=== PATIENT | female | born 1950 | race Caucasian/White ===

== ENCOUNTER 2018-06-14 05:18 | Inpatient (IN) | payer MEDICARE, BC ==
[2018-06-09 15:51] LABS: BASOPHILS % (AUTO) 0.7 % (0-1); EOSINOPHILS # (AUTO) 0.2 X10'3 (0-0.9); EOSINOPHILS % (AUTO) 3.6 % (0-6); LYMPHOCYTES # (AUTO) 1.6 X10'3 (1.1-4.8); LYMPHOCYTES % (AUTO) 23.2 % (21-51); MEAN CORPUSCULAR VOLUME 87.9 FL (78-98); MEAN PLATELET VOLUME 7.8 FL (7.4-10.4); MONOCYTES # (AUTO) 0.6 X10'3 (0-0.9); MONOCYTES % (AUTO) 8.2 % (2-12); NEUTROPHILS # (AUTO) 4.4 X10'3 (1.8-7.7); NEUTROPHILS % (AUTO) 64.3 % (42-75); PRE OP HEMATOCRIT 39.5 % (35.0-45.0); PRE OP PLATELET COUNT 246 X10'3 (140-440); RED BLOOD COUNT 4.49 X10'6 (4.20-5.60); RED CELL DISTRIBUTION WIDTH 19.4 % (11.5-14.5)
[2018-06-09 15:55] LABS: CLARITY,URINE Clear (Clear); COLOR,URINE Yellow (Yellow); GLUCOSE, URINE Negative (Neg); KETONES,URINE Negative (Neg); LEUKOCYTE ESTERASE ,URINE Trace (Neg); NITRITES, URINE Negative (Neg); OCCULT BLOOD,URINE Negative (Neg); PROTEIN,URINE Negative (Neg); UROBILINOGEN,URINE 0.2 E.U/dL (0.2-1.0)
[2018-06-09 16:00] LABS: PARTIAL THROMBOPLASTIN TIME 24 SECONDS (22-32)
[2018-06-09 16:01] LABS: HEMOGLOBIN A1C 7.2 % (4.5-6.2)
[2018-06-09 16:04] LABS: UA COLLECTION TYPE NON-SPECIFIED
[2018-06-09 16:05] LABS: ALBUMIN 3.7 G/DL (3.4-5.0); ALBUMIN/GLOBULIN RATIO 0.9 (1.1-1.5); ALKALINE PHOSPHATASE 105 IU/L (46-116); BLOOD UREA NITROGEN 14 MG/DL (7-18); BUN/CREATININE RATIO 15.7 (6.6-38.0); CALCIUM 9.7 MG/DL (8.5-10.1); CHLORIDE 103 MMOL/L (99-107); CREATININE 0.89 MG/DL (0.40-0.90); PRE OP ALT 30 U/L (30-65); PRE OP ANION GAP 10 (8-16); PRE OP AST 36 U/L (10-37); PRE OP BILIRUB, TOTAL 0.8 MG/DL (0.0-1.0); PRE OP GLUCOSE 167 MG/DL (70-104); PRE OP POTASSIUM 3.8 MMOL/L (3.4-5.1); PRE OP SODIUM 140 MMOL/L (135-145); TOTAL CARBON DIOXIDE 27.5 MMOL/L (24-32); TOTAL PROTEIN 7.8 G/DL (6.4-8.2); eGFR 63 ML/MIN
[2018-06-09 16:20] LABS: SQUAMOUS EPITHELIAL CELL,UR FEW /LPF (FEW)
[2018-06-09 16:21] LABS: BACTERIA,URINE NONE SEEN /HPF (Neg); MUCUS STRANDS FEW /LPF (Neg); WBC,URINE 0-4 /HPF (0-4)
[2018-06-09 16:22] LABS: RBC,URINE 0 /HPF (0-2)
[2018-06-09 17:02] LABS: PLATELET ESTIMATE NORMAL; POLYCHROMASIA 1+
[2018-06-09 17:03] LABS: ANISOCYTOSIS 2+
[2018-06-14] VITALS (36 sets, daily range): BP systolic 105–158; BP diastolic 48–91
[~2018-06-14] VITALS: Ht 165.1 cm; Wt 112.3 kg
[~2018-06-14 05:18] MED LIST: AMLO2.5T2 PO; ATOR40TA PO; GLIP10TA11 PO; KRIL1CAP PO; LACT1CAP65 PO; LISI-600 PO; METF-950 PO; METO-384 PO
[2018-06-14] MEDS ORDERED: famotidine 20mg tablet PO ONE (05:30)
[2018-06-14] MEDS ORDERED: DOCUMENT DATE & TIME OF BETA-BLOCKER PO ONE (05:30)
[2018-06-14] MEDS ORDERED: Cefazolin 2GM/50ML dext iso,osmotic IVPB IV ONE (05:30)
[2018-06-14] MEDS ORDERED: LIDOcaine 1% (10mg/ml) 2ml vial ONE (05:41)
[2018-06-14] MEDS: ringers solution, lacted 1,000 ML IV SCH ×4 (05:58→16:19)
[2018-06-14] MEDS ORDERED: ceFAZolin 1000mg inj ONE (06:49)
[2018-06-14] MEDS ORDERED: cloNIDine hcl/PF 100mcg/ml inj ONE (07:24)
[2018-06-14] MEDS ORDERED: LIDOcaine 2% (20mg/ml) 5ml vial ONE (07:26)
[2018-06-14] MEDS ORDERED: propofol inj 20 ML IV ONE (07:26)
[2018-06-14] MEDS ORDERED: fentaNYL /PF 50mcg/ml 5ml ampule ONE (07:26)
[2018-06-14] MEDS ORDERED: midazolam 2 mg/2 ml injection ONE (07:26)
[2018-06-14] MEDS ORDERED: rocuronium 10mg/ml inj IV ONE ×2 (07:26→09:37)
[2018-06-14] MEDS ORDERED: sevoflurane 250ml liquid IH ONE (07:31)
[2018-06-14] MEDS ORDERED: insulin regular, human vial - multi-dose ONE (08:13)
[2018-06-14] MEDS ORDERED: meperidine/PF 25mg/ml syringe IV PRN ×2 (09:10)
[2018-06-14] MEDS ORDERED: ondansetron/PF 4mg/2ml inj IV PRN (09:10)
[2018-06-14] MEDS ORDERED: proCHLORperazine 10 MG/2 ml inj IV PRN (09:10)
[2018-06-14] MEDS ORDERED: morphine 4 MG/ML inj SYRINge IV PRN ×2 (09:10)
[2018-06-14] MEDS ORDERED: ringers solution, lacted 1,000 ML IV SCH (09:10)
[2018-06-14] MEDS ORDERED: glycopyrrolate 0.2mg/ml inj ONE (09:37)
[2018-06-14] MEDS ORDERED: neostigmine methylsulfate 1 MG/ML 10ml vial ONE (09:37)
[2018-06-14] MEDS ORDERED: ipratropium/albuterol 3ml nebule IH ONE (10:25)
[2018-06-14] MEDS ORDERED: insulin regular, human 10 units/0.1 ml syringe IV ONE (11:00)
[2018-06-14] MEDS: meperidine/PF 25mg/ml syringe IV PRN ×5 (11:38→16:18)
[2018-06-14] MEDS ORDERED: acetaminophen 1,000mg/100ml IV 100 ML IV ONE (11:40)
[2018-06-14] MEDS ORDERED: ketorolac trometh. 30mg/ml inj. IV ONE (11:40)
[2018-06-14 12:10] LABS: ABG HCO3 17.2 mmol/L (22.0-26.0); ABG OXYGEN SATURATION 89.8 % (95-98); ABG PCO2 (T) 34.6 mmHg (32.0-45.0); ABG PH (T) 7.315 (7.350-7.450); ABG PO2 (T) 64.5 mmHg (83-108); FCOHb 0.4 % (0.5-1.5); FLOW 8 L/min; FMetHb 0.2 % (0.3-1.12); FO2Hb 89.3 % (94-100)
[2018-06-14] MEDS: metFORMIN 500mg tablet PO SCH ×2 (13:00→20:10)
[2018-06-14 14:30] LABS: ABG BASE EXCESS -4.9 mmol/L (-2.0-3.0); ABG OXYGEN SATURATION 92.8 % (95-98); ABG PCO2 (T) 36.4 mmHg (32.0-45.0); ABG PH (T) 7.357 (7.350-7.450); ABG PO2 (T) 69.7 mmHg (83-108); FCOHb 0.3 % (0.5-1.5); FLOW 6 L/min; FMetHb 0.1 % (0.3-1.12); FO2Hb 92.4 % (94-100); TOTAL HEMOGLOBIN 12.6 G/dl (12.0-16.0)
[2018-06-14] MEDS ORDERED: HYDROmorphone/NS 1 mg/ml CADD 50 ML IV SCH (14:40)
[2018-06-14] MEDS ORDERED: CADD PCA waste documentation MC SCH (14:45)
[2018-06-14] MEDS ORDERED: naloxone 0.4 mg/ml inj IV PRN (14:45)
[2018-06-14] MEDS: HYDROmorphone/NS 1 mg/ml CADD 50 ML IV SCH ×5 (14:45→23:08)
[2018-06-14] MEDS: lactobacillus rhamnosus 10,000 MMU CELLS/CAPSULE PO SCH (20:10)
[2018-06-14] MEDS ORDERED: Melatonin 3mg tablet PO PRN (21:20)
[2018-06-14] MEDS: Melatonin 3mg tablet PO PRN (21:35)
[2018-06-15] MEDS: HYDROmorphone/NS 1 mg/ml CADD 50 ML IV SCH ×7 (00:56→13:00)
[2018-06-15 02:55] VITALS: BP 135/60
[2018-06-15 06:00] VITALS: BP 133/57
[2018-06-15] MEDS: atorvastatin 20mg tablet PO SCH (07:51)
[2018-06-15] MEDS: metFORMIN 500mg tablet PO SCH ×3 (07:51→20:37)
[2018-06-15] MEDS: metoprolol succinate 25mg (24-HOUR) SR. Tablet PO SCH (07:51)
[2018-06-15] MEDS: lactobacillus rhamnosus 10,000 MMU CELLS/CAPSULE PO SCH ×2 (07:51→20:36)
[2018-06-15] MEDS: lisinopril 20mg tablet PO SCH (07:51)
[2018-06-15] MEDS: amLODIPine 5mg tablet PO SCH (07:51)
[2018-06-15] MEDS: OMEGA-3/DHA/EPA/FISH OIL 1 EACH CAPSULE.DR PO SCH (07:55)
[2018-06-15 11:00] VITALS: BP 150/69
[2018-06-15] MEDS: HYDROcodone/acetaminophen 10/325mg tab PO PRN (14:40)
[2018-06-15 15:00] VITALS: BP 143/66
[2018-06-15 19:00] VITALS: BP 151/63
[2018-06-15 23:00] VITALS: BP 145/81
[2018-06-16 03:00] VITALS: BP 147/71
[2018-06-16 06:00] VITALS: BP 147/68
[2018-06-16] MEDS: OMEGA-3/DHA/EPA/FISH OIL 1 EACH CAPSULE.DR PO SCH (08:00)
[2018-06-16] MEDS: metFORMIN 500mg tablet PO SCH ×3 (09:23→20:37)
[2018-06-16] MEDS: lisinopril 20mg tablet PO SCH (09:23)
[2018-06-16] MEDS: metoprolol succinate 25mg (24-HOUR) SR. Tablet PO SCH (09:23)
[2018-06-16] MEDS: amLODIPine 5mg tablet PO SCH (09:23)
[2018-06-16] MEDS: atorvastatin 20mg tablet PO SCH (09:23)
[2018-06-16] MEDS: lactobacillus rhamnosus 10,000 MMU CELLS/CAPSULE PO SCH ×2 (09:23→20:37)
[2018-06-16 11:00] VITALS: BP 151/92
[2018-06-16] MEDS: HYDROcodone/acetaminophen 10/325mg tab PO PRN ×2 (11:14→22:32)
[2018-06-16 17:21] VITALS: BP 118/75
[2018-06-16 18:00] VITALS: BP 136/64
[2018-06-16 22:00] VITALS: BP 138/66
[2018-06-17] VITALS (21 sets, daily range): BP systolic 102–181; BP diastolic 60–96
[2018-06-17] MEDS: atorvastatin 20mg tablet PO SCH (08:00)
[2018-06-17] MEDS: lactobacillus rhamnosus 10,000 MMU CELLS/CAPSULE PO SCH ×2 (08:00→22:52)
[2018-06-17] MEDS: OMEGA-3/DHA/EPA/FISH OIL 1 EACH CAPSULE.DR PO SCH (08:00)
[2018-06-17] MEDS: metFORMIN 500mg tablet PO SCH ×3 (08:00→22:52)
[2018-06-17] MEDS: lisinopril 20mg tablet PO SCH (09:14)
[2018-06-17] MEDS: amLODIPine 5mg tablet PO SCH (09:15)
[2018-06-17] MEDS: metoprolol succinate 25mg (24-HOUR) SR. Tablet PO SCH (09:15)
[2018-06-17] MEDS ORDERED: diltiazem-NS 100mg/100ml 100 ML IV SCH (09:30)
[2018-06-17] MEDS ORDERED: diltiazem 5mg/ml 5ml inj. IV ONE (09:30)
[2018-06-17] MEDS: apixaban 5mg tablet PO SCH ×2 (10:31→22:52)
[2018-06-17 11:21] LABS: ALANINE AMINOTRANSFERASE 28 U/L (12-78); ALBUMIN 2.7 G/DL (3.4-5.0); ALBUMIN/GLOBULIN RATIO 0.6 (1.1-1.5); ALKALINE PHOSPHATASE 109 IU/L (46-116); ANION GAP 12 (8-16); ASPARTATE AMINO TRANSFERASE 23 U/L (10-37); BILIRUBIN,TOTAL 1.3 MG/DL (0.1-1.0); BLOOD UREA NITROGEN 22 MG/DL (7-18); BUN/CREATININE RATIO 23.4 (6.6-38.0); CALCIUM 9.1 MG/DL (8.5-10.1); CHLORIDE 102 MMOL/L (99-107); CREATININE 0.94 MG/DL (0.40-0.90); GLUCOSE 219 MG/DL (70-104); SODIUM 138 MMOL/L (135-145); TOTAL CARBON DIOXIDE 24.5 MMOL/L (24-32); TOTAL PROTEIN 7.5 G/DL (6.4-8.2); eGFR 59 ML/MIN
[2018-06-17] MEDS ORDERED: ondansetron 4mg rapidly disintigrating tab PO PRN (19:55)
[2018-06-17] MEDS: Melatonin 3mg tablet PO PRN (22:52)
[2018-06-18] VITALS (11 sets, daily range): BP systolic 99–149; BP diastolic 58–81
[2018-06-18] MEDS: diltiazem-D5W 125mg/125ml 125 ML IV SCH ×3 (02:05→15:27)
[2018-06-18 05:09] LABS: BASOPHILS % (AUTO) 0.2 % (0-1); EOSINOPHILS # (AUTO) 0.2 X10'3 (0-0.9); EOSINOPHILS % (AUTO) 1.9 % (0-6); HEMATOCRIT 36.7 % (35.0-45.0); HEMOGLOBIN 12.2 g/dl (12.0-16.0); LYMPHOCYTES # (AUTO) 1.1 X10'3 (1.1-4.8); LYMPHOCYTES % (AUTO) 10.4 % (21-51); MEAN CORPUSCULAR HEMOGLOBIN 29.5 PG (27.0-31.0); MEAN CORPUSCULAR HGB CONC 33.4 % (33.0-36.5); MEAN CORPUSCULAR VOLUME 88.5 FL (78-98); MEAN PLATELET VOLUME 8.1 FL (7.4-10.4); MONOCYTES # (AUTO) 1.1 X10'3 (0-0.9); MONOCYTES % (AUTO) 10.1 % (2-12); NEUTROPHILS # (AUTO) 8.1 X10'3 (1.8-7.7); NEUTROPHILS % (AUTO) 77.4 % (42-75); PLATELET COUNT 273 X10'3 (140-440); RED BLOOD COUNT 4.14 X10'6 (4.20-5.60); RED CELL DISTRIBUTION WIDTH 18.8 % (11.5-14.5); WHITE BLOOD COUNT 10.5 X10'3 (4.5-11.0)
[2018-06-18 05:44] LABS: ALANINE AMINOTRANSFERASE 33 U/L (12-78); ALBUMIN 2.4 G/DL (3.4-5.0); ALBUMIN/GLOBULIN RATIO 0.5 (1.1-1.5); ALKALINE PHOSPHATASE 122 IU/L (46-116); ANION GAP 8 (8-16); ASPARTATE AMINO TRANSFERASE 41 U/L (10-37); BILIRUBIN,TOTAL 1.1 MG/DL (0.1-1.0); BLOOD UREA NITROGEN 21 MG/DL (7-18); BUN/CREATININE RATIO 30.4 (6.6-38.0); CALCIUM 8.7 MG/DL (8.5-10.1); CHLORIDE 104 MMOL/L (99-107); CREATININE 0.69 MG/DL (0.40-0.90); GLUCOSE 167 MG/DL (70-104); MAGNESIUM 2.2 MG/DL (1.5-2.4); SODIUM 140 MMOL/L (135-145); TOTAL CARBON DIOXIDE 27.8 MMOL/L (24-32); TOTAL PROTEIN 6.9 G/DL (6.4-8.2); eGFR 85 ML/MIN
[2018-06-18] MEDS ORDERED: diltiazem 5mg/ml 5ml inj. IV ONE (07:45)
[2018-06-18] MEDS: lactobacillus rhamnosus 10,000 MMU CELLS/CAPSULE PO SCH ×2 (08:00→20:35)
[2018-06-18] MEDS: metFORMIN 500mg tablet PO SCH ×3 (08:00→21:00)
[2018-06-18] MEDS: atorvastatin 20mg tablet PO SCH (08:00)
[2018-06-18] MEDS: OMEGA-3/DHA/EPA/FISH OIL 1 EACH CAPSULE.DR PO SCH (08:00)
[2018-06-18] MEDS ORDERED: mag hydrox/Alum hydrox/simeth 30ml oral suspension PO PRN (08:20)
[2018-06-18] MEDS: apixaban 5mg tablet PO SCH ×2 (08:34→20:35)
[2018-06-18] MEDS: metoprolol succinate 25mg (24-HOUR) SR. Tablet PO SCH (08:35)
[2018-06-18] MEDS ORDERED: famotidine 20mg tablet PO ONE (09:35)
[2018-06-18] MEDS: diltiazem 30mg tablet PO SCH ×2 (13:54→20:35)
[2018-06-18] MEDS: HYDROcodone/acetaminophen 10/325mg tab PO PRN (20:45)
[2018-06-18] MEDS: Melatonin 3mg tablet PO PRN (20:45)
[2018-06-19 03:00] VITALS: BP 101/47
[2018-06-19 06:00] VITALS: BP 127/99
[2018-06-19] MEDS: OMEGA-3/DHA/EPA/FISH OIL 1 EACH CAPSULE.DR PO SCH (08:00)
[2018-06-19] MEDS: pantoprazole 40mg Tablet.DR PO SCH (08:06)
[2018-06-19] MEDS: famotidine 20mg tablet PO SCH (08:06)
[2018-06-19] MEDS: diltiazem 30mg tablet PO SCH ×3 (08:09→20:42)
[2018-06-19] MEDS: lactobacillus rhamnosus 10,000 MMU CELLS/CAPSULE PO SCH ×2 (08:11→20:40)
[2018-06-19] MEDS: metFORMIN 500mg tablet PO SCH ×2 (08:12→13:00)
[2018-06-19] MEDS: apixaban 5mg tablet PO SCH ×2 (08:12→20:42)
[2018-06-19] MEDS: atorvastatin 20mg tablet PO SCH (08:13)
[2018-06-19] MEDS: metoprolol succinate 25mg (24-HOUR) SR. Tablet PO SCH (08:14)
[2018-06-19 11:00] VITALS: BP 145/72
[2018-06-19] MEDS ORDERED: iohexol 350MG/ML 100ml bottle IV ONE ×2 (11:26→17:15)
[2018-06-19 15:00] VITALS: BP 163/69
[2018-06-19] MEDS: HYDROcodone/acetaminophen 10/325mg tab PO PRN (20:41)
[2018-06-19] MEDS: Melatonin 3mg tablet PO PRN (20:42)
[2018-06-20 06:00] VITALS: BP 155/93
[2018-06-20] MEDS: famotidine 20mg tablet PO SCH (06:41)
[2018-06-20] MEDS: pantoprazole 40mg Tablet.DR PO SCH (06:41)
[2018-06-20] MEDS: diltiazem 30mg tablet PO SCH ×3 (06:41→13:33)
[2018-06-20] MEDS: OMEGA-3/DHA/EPA/FISH OIL 1 EACH CAPSULE.DR PO SCH (08:00)
[2018-06-20] MEDS: lactobacillus rhamnosus 10,000 MMU CELLS/CAPSULE PO SCH (08:22)
[2018-06-20] MEDS: atorvastatin 20mg tablet PO SCH (08:23)
[2018-06-20] MEDS: metoprolol succinate 25mg (24-HOUR) SR. Tablet PO SCH (08:23)
[2018-06-20] MEDS: apixaban 5mg tablet PO SCH (08:23)
[2018-06-20 11:00] VITALS: BP 132/61
[2018-06-20] MEDS ORDERED: DILT30TA5 PO (13:03)
[2018-06-20] MEDS ORDERED: APIX5TAB3 PO (13:03)
[2018-06-20 15:00] VITALS: BP 123/67
[2018-06-20] MEDS ORDERED: ipratropium/albuterol 3ml nebule NEB PRN (18:05)
[2018-06-21] MEDS ORDERED: metFORMIN 500mg tablet PO SCH (21:00)
== END 2018-06-20 18:00 | disposition home or self-care (01) | DRG 335 ==
LOC: PAS 05:18 → PCU 3S 05:19 → PAS 16:04
PROVIDERS: ADMIT Surgery; ATTEND Surgery
PROC: 0DN84ZZ Release Small Intestine, Percutaneous Endoscopic Approach (ICD-10-PCS; 2018-06-14)
PROC: 3E0M45Z Introduction of Adhesion Barrier into Peritoneal Cavity, Percutaneous Endoscopic Approach (ICD-10-PCS; 2018-06-14)
PROC: 0DNU4ZZ Release Omentum, Percutaneous Endoscopic Approach (ICD-10-PCS; 2018-06-14)
PROC: 0WUF4JZ Supplement Abdominal Wall with Synthetic Substitute, Percutaneous Endoscopic Approach (ICD-10-PCS; principal; 2018-06-14 07:31)
PROC: B32T1ZZ Computerized Tomography (CT Scan) of Left Pulmonary Artery using Low Osmolar Contrast (ICD-10-PCS; 2018-06-19)
PROC: B3201ZZ Computerized Tomography (CT Scan) of Thoracic Aorta using Low Osmolar Contrast (ICD-10-PCS; 2018-06-19)
PROC: B32S1ZZ Computerized Tomography (CT Scan) of Right Pulmonary Artery using Low Osmolar Contrast (ICD-10-PCS; 2018-06-19)
DX: K56.50 Intestinal adhesions [bands], unspecified as to partial versus complete obstruction (principal); J96.00 Acute respiratory failure, unspecified whether with hypoxia or hypercapnia; Z68.41 Body mass index [BMI] 40.0-44.9, adult; E46 Unspecified protein-calorie malnutrition; I47.1 Supraventricular tachycardia; K43.2 Incisional hernia without obstruction or gangrene; K43.9 Ventral hernia without obstruction or gangrene; E66.01 Morbid (severe) obesity due to excess calories; I48.91 Unspecified atrial fibrillation; E03.9 Hypothyroidism, unspecified; E78.5 Hyperlipidemia, unspecified; G47.30 Sleep apnea, unspecified; I10 Essential (primary) hypertension; I25.10 Atherosclerotic heart disease of native coronary artery without angina pectoris; K21.9 Gastro-esophageal reflux disease without esophagitis; Z96.642 Presence of left artificial hip joint; E05.90 Thyrotoxicosis, unspecified without thyrotoxic crisis or storm; E11.65 Type 2 diabetes mellitus with hyperglycemia; Z90.710 Acquired absence of both cervix and uterus; Z90.49 Acquired absence of other specified parts of digestive tract; Z95.5 Presence of coronary angioplasty implant and graft; Z88.0 Allergy status to penicillin; Z79.84 Long term (current) use of oral hypoglycemic drugs; Z79.899 Other long term (current) drug therapy; Z85.038 Personal history of other malignant neoplasm of large intestine; Z87.891 Personal history of nicotine dependence; Z92.21 Personal history of antineoplastic chemotherapy; Z82.49 Family history of ischemic heart disease and other diseases of the circulatory system
CPT/HCPCS: 36415; 36600; 71275; 76536; 80053; 81001; 82803; 82948; 83036; 83735; 84439; 84443; 85018; 85025; 85610; 85730; 87070; 87088; 93005; 93306; 94640; 94660; 97116; 97161; 97530; A6213; A7000; C1713; C1758; C1781; J0131; J0690; J0735; J1170; J1815; J1885; J2001; J2175; J2250; J2405; J2704; J2710; J3010; J3490; J7030; J7120; Q9967

== ENCOUNTER 2018-07-16 04:02 | Inpatient (IN) | payer MEDICARE, BC ==
[~2018-07-16] VITALS: Ht 165.1 cm; Wt 109.0 kg
[~2018-07-16 04:02] MED LIST changes: +APIX5TAB3 PO; +DILT30TA5 PO
[2018-07-16] MEDS ORDERED: ondansetron/PF 4mg/2ml inj IV ONE (04:30)
[2018-07-16] MEDS ORDERED: PROBIOTIC 10 PO (04:53)
[2018-07-16] MEDS ORDERED: ASPI-803 PO (04:53)
[2018-07-16] MEDS ORDERED: DILT30TA5 PO (04:53)
[2018-07-16] MEDS ORDERED: [UNRECOGNIZED DRUG - CODE] PO (04:53)
[2018-07-16] MEDS ORDERED: mag hydrox/Alum hydrox/simeth 30ml oral suspension PO PRN (05:45)
[2018-07-16] MEDS ORDERED: dextrose 50%-water 50ml dispensing syringe IV PRN ×2 (05:45)
[2018-07-16] MEDS ORDERED: dextrose ORAL solution 15 GM/59 ML bottle PO PRN ×2 (05:45)
[2018-07-16] MEDS ORDERED: MESSAGE TO PHARMACY PO ONE (05:45)
[2018-07-16] MEDS ORDERED: normal saline 1000ml 1,000 ML IV ONE (05:45)
[2018-07-16] MEDS ORDERED: magnesium hydroxide 30ml (MOM) UD suspension PO PRN (05:45)
[2018-07-16] MEDS ORDERED: glucagon, human recombinant 1mg kit SUBCUT PRN (05:45)
[2018-07-16] MEDS ORDERED: acetaminophen 325mg tablet PO PRN ×2 (05:45)
[2018-07-16] MEDS ORDERED: APIX5TAB3 PO (06:57)
[2018-07-16 07:55] VITALS: BP 189/95
[2018-07-16] MEDS ORDERED: DHA PO SCH (08:00)
[2018-07-16] MEDS ORDERED: EPA PO SCH (08:00)
[2018-07-16] MEDS ORDERED: LIP PO SCH (08:00)
[2018-07-16] MEDS ORDERED: KRILL PO SCH (08:00)
[2018-07-16] MEDS ORDERED: CefTRIAXone 2gm/D5W 50ml 50 ML IV SCH (08:00)
[2018-07-16] MEDS ORDERED: ASTX PO SCH (08:00)
[2018-07-16] MEDS ORDERED: [UNRECOGNIZED DRUG - OTHER] PO SCH (08:00)
[2018-07-16] MEDS: lactobacillus rhamnosus 10,000 MMU CELLS/CAPSULE PO SCH (08:45)
[2018-07-16] MEDS: atorvastatin 20mg tablet PO SCH (08:45)
[2018-07-16] MEDS: lisinopril 20mg tablet PO SCH (08:45)
[2018-07-16] MEDS: metroNIDAZOLE-Flagyl 500mg/NS 100 ML IV SCH ×2 (08:45→20:15)
[2018-07-16] MEDS: metoprolol succinate 25mg (24-HOUR) SR. Tablet PO SCH (08:45)
[2018-07-16] MEDS: amLODIPine 5mg tablet PO SCH (08:45)
[2018-07-16] MEDS: diltiazem 30mg tablet PO SCH ×3 (08:47→20:16)
[2018-07-16] MEDS ORDERED: magnesium Cl slow-release 64mg tablet PO PRN (09:45)
[2018-07-16] MEDS: normal saline 1000ml 1,000 ML IV SCH ×2 (09:45→19:45)
[2018-07-16] MEDS ORDERED: potassium Cl 20 mEq SR tablet PO PRN (09:45)
[2018-07-16] MEDS ORDERED: magnesium 4gm in 100ml NS 100 ML IV PRN (09:45)
[2018-07-16] MEDS ORDERED: magnesium 1gm/100ml D5W IVPB 100 ML IV PRN (09:45)
[2018-07-16] MEDS ORDERED: potassium Cl 40MEQ/NS 500ml 500 ML IV PRN ×2 (09:45)
[2018-07-16 10:39] LABS: BASOPHILS # (AUTO) 0.1 X10'3 (0-0.2); BASOPHILS % (AUTO) 1.2 % (0-1); EOSINOPHILS # (AUTO) 0.2 X10'3 (0-0.9); EOSINOPHILS % (AUTO) 2.8 % (0-6); HEMATOCRIT 31.8 % (35.0-45.0); HEMOGLOBIN 10.5 g/dl (12.0-16.0); LYMPHOCYTES % (AUTO) 15.5 % (21-51); MEAN CORPUSCULAR HEMOGLOBIN 28.3 PG (27.0-31.0); MEAN CORPUSCULAR HGB CONC 33.2 % (33.0-36.5); MEAN CORPUSCULAR VOLUME 85.2 FL (78-98); MEAN PLATELET VOLUME 7.5 FL (7.4-10.4); MONOCYTES # (AUTO) 0.5 X10'3 (0-0.9); MONOCYTES % (AUTO) 7.1 % (2-12); NEUTROPHILS # (AUTO) 4.5 X10'3 (1.8-7.7); NEUTROPHILS % (AUTO) 73.4 % (42-75); PLATELET COUNT 333 X10'3 (140-440); RED BLOOD COUNT 3.73 X10'6 (4.20-5.60); RED CELL DISTRIBUTION WIDTH 18.2 % (11.5-14.5); WHITE BLOOD COUNT 6.3 X10'3 (4.5-11.0)
[2018-07-16 10:46] LABS: ALANINE AMINOTRANSFERASE 27 U/L (12-78); ALBUMIN 2.8 G/DL (3.4-5.0); ALBUMIN/GLOBULIN RATIO 0.6 (1.1-1.5); ALKALINE PHOSPHATASE 197 IU/L (46-116); ANION GAP 7 (8-16); ASPARTATE AMINO TRANSFERASE 35 U/L (10-37); BILIRUBIN,TOTAL 0.5 MG/DL (0.1-1.0); BLOOD UREA NITROGEN 7 MG/DL (7-18); CALCIUM 8.5 MG/DL (8.5-10.1); CHLORIDE 105 MMOL/L (99-107); GLUCOSE 147 MG/DL (70-104); MAGNESIUM 1.5 MG/DL (1.5-2.4); POTASSIUM 3.6 MMOL/L (3.5-5.1); SODIUM 143 MMOL/L (135-145); TOTAL CARBON DIOXIDE 31.4 MMOL/L (24-32); TOTAL PROTEIN 7.3 G/DL (6.4-8.2)
[2018-07-16 10:51] LABS: BUN/CREATININE RATIO 11.1 (6.6-38.0); CREATININE 0.63 MG/DL (0.40-0.90); eGFR > 90 ML/MIN
[2018-07-16 10:57] LABS: HEMOGLOBIN A1C 7.2 % (4.5-6.2)
[2018-07-16] MEDS: levoFLOXACIN-Levaquin 750MG/D5 150 ML IV SCH (11:13)
[2018-07-16 12:00] VITALS: BP 133/57
[2018-07-16] MEDS: HYDROcodone/acetaminophen 5mg/325mg tablet PO PRN (15:00)
[2018-07-16 19:30] VITALS: BP 153/61
[2018-07-16] MEDS: insulin glargine (Lantus) pen - multi-dose SQ SCH (21:00)
[2018-07-16] MEDS: nystatin 15 GM powder TP SCH (21:45)
[2018-07-16] MEDS: diatr meglu/diatrizoate 30ml oral sol.-(3 dose) bottle PO SCH (21:45)
[2018-07-16] MEDS: ondansetron/PF 4mg/2ml inj IV PRN (22:02)
[2018-07-16] MEDS: morphine 2 MG/ML inj. syringe IV PRN (23:40)
[2018-07-17] VITALS: BP 131/58
[2018-07-17] MEDS: normal saline 1000ml 1,000 ML IV SCH ×2 (01:22→14:10)
[2018-07-17 02:15] VITALS: BP 141/69
[2018-07-17] MEDS: diltiazem 30mg tablet PO SCH ×2 (02:27→07:39)
[2018-07-17 05:52] LABS: BASOPHILS % (AUTO) 0.5 % (0-1); EOSINOPHILS # (AUTO) 0.3 X10'3 (0-0.9); EOSINOPHILS % (AUTO) 4.3 % (0-6); HEMATOCRIT 28.5 % (35.0-45.0); HEMOGLOBIN 9.8 g/dl (12.0-16.0); LYMPHOCYTES # (AUTO) 1.4 X10'3 (1.1-4.8); LYMPHOCYTES % (AUTO) 23.6 % (21-51); MEAN CORPUSCULAR HGB CONC 34.3 % (33.0-36.5); MEAN CORPUSCULAR VOLUME 84.8 FL (78-98); MEAN PLATELET VOLUME 7.3 FL (7.4-10.4); MONOCYTES # (AUTO) 0.6 X10'3 (0-0.9); MONOCYTES % (AUTO) 9.4 % (2-12); NEUTROPHILS # (AUTO) 3.6 X10'3 (1.8-7.7); NEUTROPHILS % (AUTO) 62.2 % (42-75); PLATELET COUNT 298 X10'3 (140-440); RED BLOOD COUNT 3.37 X10'6 (4.20-5.60); RED CELL DISTRIBUTION WIDTH 18.2 % (11.5-14.5); WHITE BLOOD COUNT 5.9 X10'3 (4.5-11.0)
[2018-07-17 06:06] LABS: ALBUMIN 2.4 G/DL (3.4-5.0); ANION GAP 8 (8-16); BLOOD UREA NITROGEN 6 MG/DL (7-18); BUN/CREATININE RATIO 9.7 (6.6-38.0); CALCIUM 8.2 MG/DL (8.5-10.1); CHLORIDE 107 MMOL/L (99-107); CREATININE 0.62 MG/DL (0.40-0.90); GLUCOSE 138 MG/DL (70-104); MAGNESIUM 1.5 MG/DL (1.5-2.4); POTASSIUM 3.3 MMOL/L (3.5-5.1); SODIUM 144 MMOL/L (135-145); TOTAL CARBON DIOXIDE 28.6 MMOL/L (24-32); eGFR > 90 ML/MIN
[2018-07-17 07:20] VITALS: BP 151/69
[2018-07-17] MEDS ORDERED: pneumococcal 23-VAL P-sac vacc 25 mcg/0.5ml vial IMVAC ONE (07:20)
[2018-07-17] MEDS: diatr meglu/diatrizoate 30ml oral sol.-(3 dose) bottle PO SCH ×2 (07:39→11:02)
[2018-07-17] MEDS: amLODIPine 5mg tablet PO SCH (07:39)
[2018-07-17] MEDS: lactobacillus rhamnosus 10,000 MMU CELLS/CAPSULE PO SCH (07:39)
[2018-07-17] MEDS: metroNIDAZOLE-Flagyl 500mg/NS 100 ML IV SCH ×2 (07:39→20:27)
[2018-07-17] MEDS: metoprolol succinate 25mg (24-HOUR) SR. Tablet PO SCH (07:39)
[2018-07-17] MEDS: atorvastatin 20mg tablet PO SCH (07:39)
[2018-07-17] MEDS: lisinopril 20mg tablet PO SCH (07:39)
[2018-07-17] MEDS: nystatin 15 GM powder TP SCH ×3 (07:39→22:58)
[2018-07-17] MEDS: ondansetron/PF 4mg/2ml inj IV PRN (07:46)
[2018-07-17] MEDS: morphine 2 MG/ML inj. syringe IV PRN ×3 (07:55→23:00)
[2018-07-17] MEDS: diltiazem CD 180mg cap (once-daily) PO SCH (08:00)
[2018-07-17] MEDS ORDERED: iohexol 300mg/ml 100ml inj. ONE (09:40)
[2018-07-17] MEDS: levoFLOXACIN-Levaquin 750MG/D5 150 ML IV SCH (09:57)
[2018-07-17] MEDS: potassium Cl 20 mEq SR tablet PO PRN ×2 (09:59→20:26)
[2018-07-17] MEDS: MESSAGE TO NURSING PO NR (11:53)
[2018-07-17 12:00] VITALS: BP 150/75
[2018-07-17] MEDS: insulin Lispro (HumaLOG) vial - multi-dose SQ SCH ×2 (13:56→20:25)
[2018-07-17 20:00] VITALS: BP 146/81
[2018-07-17] MEDS: heparin, porcine 5000 units/ml vial SQ SCH (20:27)
[2018-07-17] MEDS: insulin glargine (Lantus) pen - multi-dose SQ SCH (22:07)
[2018-07-18] VITALS (13 sets, daily range): BP systolic 105–163; BP diastolic 60–80
[2018-07-18] MEDS: potassium Cl 20 mEq SR tablet PO PRN (01:20)
[2018-07-18] MEDS: normal saline 1000ml 1,000 ML IV SCH ×2 (02:04→20:06)
[2018-07-18 05:46] LABS: BASOPHILS # (AUTO) 0.1 X10'3 (0-0.2); EOSINOPHILS # (AUTO) 0.3 X10'3 (0-0.9); EOSINOPHILS % (AUTO) 4.5 % (0-6); HEMATOCRIT 34.1 % (35.0-45.0); HEMOGLOBIN 11.4 g/dl (12.0-16.0); LYMPHOCYTES # (AUTO) 1.5 X10'3 (1.1-4.8); LYMPHOCYTES % (AUTO) 23.1 % (21-51); MEAN CORPUSCULAR HEMOGLOBIN 28.3 PG (27.0-31.0); MEAN CORPUSCULAR HGB CONC 33.3 % (33.0-36.5); MEAN CORPUSCULAR VOLUME 85.1 FL (78-98); MEAN PLATELET VOLUME 7.8 FL (7.4-10.4); MONOCYTES # (AUTO) 0.4 X10'3 (0-0.9); MONOCYTES % (AUTO) 5.8 % (2-12); NEUTROPHILS # (AUTO) 4.3 X10'3 (1.8-7.7); NEUTROPHILS % (AUTO) 65.6 % (42-75); PLATELET COUNT 381 X10'3 (140-440); RED BLOOD COUNT 4.01 X10'6 (4.20-5.60); WHITE BLOOD COUNT 6.6 X10'3 (4.5-11.0)
[2018-07-18 06:00] LABS: ANION GAP 10 (8-16); BLOOD UREA NITROGEN 5 MG/DL (7-18); CALCIUM 8.5 MG/DL (8.5-10.1); CHLORIDE 105 MMOL/L (99-107); CREATININE 0.71 MG/DL (0.40-0.90); GLUCOSE 145 MG/DL (70-104); MAGNESIUM 1.6 MG/DL (1.5-2.4); POTASSIUM 3.7 MMOL/L (3.5-5.1); SODIUM 143 MMOL/L (135-145); TOTAL CARBON DIOXIDE 27.8 MMOL/L (24-32); eGFR 82 ML/MIN
[2018-07-18] MEDS: lisinopril 20mg tablet PO SCH (07:21)
[2018-07-18] MEDS: levoFLOXACIN-Levaquin 750MG/D5 150 ML IV SCH (07:21)
[2018-07-18] MEDS: lactobacillus rhamnosus 10,000 MMU CELLS/CAPSULE PO SCH (07:22)
[2018-07-18] MEDS: diltiazem CD 180mg cap (once-daily) PO SCH (07:23)
[2018-07-18] MEDS: atorvastatin 20mg tablet PO SCH (07:24)
[2018-07-18] MEDS: metoprolol succinate 25mg (24-HOUR) SR. Tablet PO SCH (07:28)
[2018-07-18] MEDS: nystatin 15 GM powder TP SCH ×3 (07:29→22:21)
[2018-07-18] MEDS: metroNIDAZOLE-Flagyl 500mg/NS 100 ML IV SCH ×2 (08:56→20:06)
[2018-07-18] MEDS: insulin Lispro (HumaLOG) vial - multi-dose SQ SCH (08:59)
[2018-07-18] MEDS: MESSAGE TO NURSING PO NR (10:00)
[2018-07-18] MEDS ORDERED: normal saline 1000ml 1,000 ML IV SCH (13:26)
[2018-07-18] MEDS ORDERED: fentaNYL/PF 50MCG/1 ML 2ML syringe IV PRN (13:30)
[2018-07-18] MEDS ORDERED: midazolam 2 mg/2 ml injection IV PRN (13:30)
[2018-07-18] MEDS ORDERED: LIDOcaine 1%/PF 5ML 10 MG/ML VIAL SQ ONE (13:30)
[2018-07-18] MEDS ORDERED: fentaNYL/PF 50MCG/1 ML 2ML syringe ONE (14:00)
[2018-07-18] MEDS ORDERED: midazolam 2 mg/2 ml injection ONE (14:00)
[2018-07-18] MEDS: heparin, porcine 5000 units/ml vial SQ SCH (20:08)
[2018-07-18] MEDS: insulin glargine (Lantus) pen - multi-dose SQ SCH (22:28)
[2018-07-19] MEDS: morphine 2 MG/ML inj. syringe IV PRN ×2 (03:21→07:53)
[2018-07-19 06:26] LABS: BASOPHILS % (AUTO) 0.4 % (0-1); EOSINOPHILS # (AUTO) 0.2 X10'3 (0-0.9); HEMOGLOBIN 10.5 g/dl (12.0-16.0); LYMPHOCYTES # (AUTO) 1.1 X10'3 (1.1-4.8); LYMPHOCYTES % (AUTO) 20.9 % (21-51); MEAN CORPUSCULAR HEMOGLOBIN 28.5 PG (27.0-31.0); MEAN CORPUSCULAR HGB CONC 33.7 % (33.0-36.5); MEAN CORPUSCULAR VOLUME 84.6 FL (78-98); MEAN PLATELET VOLUME 7.3 FL (7.4-10.4); MONOCYTES # (AUTO) 0.6 X10'3 (0-0.9); MONOCYTES % (AUTO) 10.2 % (2-12); NEUTROPHILS # (AUTO) 3.5 X10'3 (1.8-7.7); NEUTROPHILS % (AUTO) 65.5 % (42-75); PLATELET COUNT 298 X10'3 (140-440); RED BLOOD COUNT 3.66 X10'6 (4.20-5.60); RED CELL DISTRIBUTION WIDTH 18.6 % (11.5-14.5); WHITE BLOOD COUNT 5.4 X10'3 (4.5-11.0)
[2018-07-19 06:36] LABS: ALBUMIN 2.6 G/DL (3.4-5.0); ANION GAP 9 (8-16); BLOOD UREA NITROGEN 5 MG/DL (7-18); BUN/CREATININE RATIO 8.1 (6.6-38.0); CALCIUM 8.3 MG/DL (8.5-10.1); CHLORIDE 106 MMOL/L (99-107); CREATININE 0.62 MG/DL (0.40-0.90); GLUCOSE 144 MG/DL (70-104); MAGNESIUM 1.5 MG/DL (1.5-2.4); POTASSIUM 3.2 MMOL/L (3.5-5.1); SODIUM 143 MMOL/L (135-145); TOTAL CARBON DIOXIDE 28.3 MMOL/L (24-32); eGFR > 90 ML/MIN
[2018-07-19] MEDS: normal saline 1000ml 1,000 ML IV SCH ×2 (07:19→12:48)
[2018-07-19 07:40] VITALS: BP 173/77
[2018-07-19] MEDS: lisinopril 20mg tablet PO SCH (07:48)
[2018-07-19] MEDS: metoprolol succinate 25mg (24-HOUR) SR. Tablet PO SCH (07:48)
[2018-07-19] MEDS: atorvastatin 20mg tablet PO SCH (07:48)
[2018-07-19] MEDS: diltiazem CD 180mg cap (once-daily) PO SCH (07:48)
[2018-07-19] MEDS: heparin, porcine 5000 units/ml vial SQ SCH ×2 (07:49→19:41)
[2018-07-19] MEDS: nystatin 15 GM powder TP SCH ×3 (07:50→20:21)
[2018-07-19] MEDS: potassium Cl 20 mEq SR tablet PO PRN ×3 (07:51→22:06)
[2018-07-19] MEDS: levoFLOXACIN-Levaquin 750MG/D5 150 ML IV SCH (07:52)
[2018-07-19] MEDS: lactobacillus rhamnosus 10,000 MMU CELLS/CAPSULE PO SCH (08:44)
[2018-07-19] MEDS: metroNIDAZOLE-Flagyl 500mg/NS 100 ML IV SCH ×2 (08:55→19:40)
[2018-07-19] MEDS: HYDROcodone/acetaminophen 5mg/325mg tablet PO PRN ×3 (08:55→23:38)
[2018-07-19] MEDS: MESSAGE TO NURSING PO NR (10:02)
[2018-07-19 11:51] VITALS: BP 152/53
[2018-07-19] MEDS ORDERED: potassium Cl 40MEQ/NS 500ml 500 ML IV PRN ×2 (14:05)
[2018-07-19] MEDS ORDERED: magnesium Cl slow-release 64mg tablet PO PRN (14:05)
[2018-07-19] MEDS ORDERED: potassium Cl 20 mEq SR tablet PO PRN (14:05)
[2018-07-19] MEDS ORDERED: magnesium 4gm in 100ml NS 100 ML IV PRN (14:05)
[2018-07-19 19:30] VITALS: BP 138/75
[2018-07-19] MEDS: insulin glargine (Lantus) pen - multi-dose SQ SCH (22:06)
[2018-07-19 23:20] VITALS: BP 158/76
[2018-07-20] MEDS: HYDROcodone/acetaminophen 5mg/325mg tablet PO PRN (05:12)
[2018-07-20 05:42] LABS: BASOPHILS % (AUTO) 0.5 % (0-1); EOSINOPHILS # (AUTO) 0.2 X10'3 (0-0.9); HEMATOCRIT 32.1 % (35.0-45.0); HEMOGLOBIN 10.6 g/dl (12.0-16.0); LYMPHOCYTES # (AUTO) 1.3 X10'3 (1.1-4.8); LYMPHOCYTES % (AUTO) 22.4 % (21-51); MEAN CORPUSCULAR HEMOGLOBIN 28.2 PG (27.0-31.0); MEAN CORPUSCULAR HGB CONC 33.1 % (33.0-36.5); MEAN CORPUSCULAR VOLUME 85.1 FL (78-98); MEAN PLATELET VOLUME 7.8 FL (7.4-10.4); MONOCYTES # (AUTO) 0.7 X10'3 (0-0.9); MONOCYTES % (AUTO) 11.3 % (2-12); NEUTROPHILS # (AUTO) 3.7 X10'3 (1.8-7.7); NEUTROPHILS % (AUTO) 61.8 % (42-75); PLATELET COUNT 295 X10'3 (140-440); RED BLOOD COUNT 3.77 X10'6 (4.20-5.60); RED CELL DISTRIBUTION WIDTH 18.3 % (11.5-14.5); WHITE BLOOD COUNT 5.9 X10'3 (4.5-11.0)
[2018-07-20 05:43] LABS: ALBUMIN 2.6 G/DL (3.4-5.0); ANION GAP 8 (8-16); BLOOD UREA NITROGEN 7 MG/DL (7-18); BUN/CREATININE RATIO 11.3 (6.6-38.0); CALCIUM 8.4 MG/DL (8.5-10.1); CHLORIDE 106 MMOL/L (99-107); CREATININE 0.62 MG/DL (0.40-0.90); GLUCOSE 131 MG/DL (70-104); MAGNESIUM 1.5 MG/DL (1.5-2.4); POTASSIUM 3.3 MMOL/L (3.5-5.1); SODIUM 142 MMOL/L (135-145); TOTAL CARBON DIOXIDE 27.6 MMOL/L (24-32); eGFR > 90 ML/MIN
[2018-07-20 07:21] VITALS: BP 142/64
[2018-07-20] MEDS: levoFLOXACIN-Levaquin 750MG/D5 150 ML IV SCH (08:00)
[2018-07-20] MEDS: metroNIDAZOLE-Flagyl 500mg/NS 100 ML IV SCH (08:00)
[2018-07-20] MEDS: nystatin 15 GM powder TP SCH ×2 (08:00→13:00)
[2018-07-20] MEDS: metoprolol succinate 25mg (24-HOUR) SR. Tablet PO SCH (08:32)
[2018-07-20] MEDS: lactobacillus rhamnosus 10,000 MMU CELLS/CAPSULE PO SCH (08:32)
[2018-07-20] MEDS: atorvastatin 20mg tablet PO SCH (08:33)
[2018-07-20] MEDS: lisinopril 20mg tablet PO SCH (08:33)
[2018-07-20] MEDS: heparin, porcine 5000 units/ml vial SQ SCH (08:34)
[2018-07-20] MEDS: diltiazem CD 180mg cap (once-daily) PO SCH (08:37)
[2018-07-20] MEDS: normal saline 1000ml 1,000 ML IV SCH (09:59)
[2018-07-20] MEDS ORDERED: METR500T PO (12:10)
[2018-07-20] MEDS ORDERED: NYSPWD TP (12:10)
[2018-07-20] MEDS ORDERED: LEVO500T89 PO (12:10)
[2018-07-20] MEDS ORDERED: GLIP5TAB13 PO (12:10)
[2018-07-20] MEDS ORDERED: METF-950 PO (12:10)
[2018-07-20] MEDS ORDERED: DILT180C66 PO (12:10)
[2018-07-20] MEDS ORDERED: ASPI-611 PO (14:50)
== END 2018-07-20 15:00 | disposition home or self-care (01) | DRG 920 ==
LOC: ER 04:03 → ED HOLD 05:42 → SUR 3N 07:05
PROVIDERS: ADMIT Hospitalist; ATTEND Family Medicine
PROC: 3E0234Z Introduction of Serum, Toxoid and Vaccine into Muscle, Percutaneous Approach (ICD-10-PCS; principal; 2018-07-17)
PROC: BW211ZZ Computerized Tomography (CT Scan) of Abdomen and Pelvis using Low Osmolar Contrast (ICD-10-PCS; 2018-07-17)
PROC: 0W9F3ZZ Drainage of Abdominal Wall, Percutaneous Approach (ICD-10-PCS; 2018-07-18)
DX: L76.32 Postprocedural hematoma of skin and subcutaneous tissue following other procedure (principal); Z68.41 Body mass index [BMI] 40.0-44.9, adult; L76.34 Postprocedural seroma of skin and subcutaneous tissue following other procedure; E66.9 Obesity, unspecified; D63.8 Anemia in other chronic diseases classified elsewhere; K52.9 Noninfective gastroenteritis and colitis, unspecified; E03.9 Hypothyroidism, unspecified; E11.9 Type 2 diabetes mellitus without complications; E78.5 Hyperlipidemia, unspecified; Y83.8 Other surgical procedures as the cause of abnormal reaction of the patient, or of later complication, without mention of misadventure at the time of the procedure; Y73.3 Surgical instruments, materials and gastroenterology and urology devices (including sutures) associated with adverse incidents; E87.6 Hypokalemia; G47.30 Sleep apnea, unspecified; I10 Essential (primary) hypertension; I48.0 Paroxysmal atrial fibrillation; Z90.49 Acquired absence of other specified parts of digestive tract; Z88.0 Allergy status to penicillin; Z79.899 Other long term (current) drug therapy; Z79.84 Long term (current) use of oral hypoglycemic drugs; Z85.038 Personal history of other malignant neoplasm of large intestine; Z23 Encounter for immunization; Y92.89 Other specified places as the place of occurrence of the external cause
CPT/HCPCS: 10160; 36415; 71045; 74018; 74177; 77012; 80048; 80053; 82948; 83036; 83735; 85025; 87040; 87070; 87077; 87186; 90732; 96374; 99152; 99153; 99285; J1644; J1815; J1956; J2250; J2270; J2405; J3010; J3490; J7030; Q9963; Q9967

== ENCOUNTER 2019-05-02 14:45 | Emergency (ER) | payer MEDICARE, BC ==
[~2019-05-02] VITALS: Ht 165.1 cm; Wt 105.0 kg
[~2019-05-02 14:45] MED LIST changes: -AMLO2.5T2 PO; -APIX5TAB3 PO; +DILT180C66 PO; -DILT30TA5 PO; -GLIP10TA11 PO; +GLIP5TAB13 PO; -LACT1CAP65 PO; -METF-950 PO; +NYSPWD TP; +PROBIOTIC 10 PO
[2019-05-02 14:50] VITALS: BP 160/72
--- NOTE | 2019-05-02 15:45 | NUR ---
EYE CART PLACED AT BEDSIDE PER ORDERS
== END 2019-05-02 17:03 | disposition home or self-care (01) ==
LOC: ER 14:46
DX: H43.391 Other vitreous opacities, right eye (principal); H61.21 Impacted cerumen, right ear; M54.2 Cervicalgia; I48.91 Unspecified atrial fibrillation; G47.30 Sleep apnea, unspecified; Z85.038 Personal history of other malignant neoplasm of large intestine; Z90.49 Acquired absence of other specified parts of digestive tract; Z98.890 Other specified postprocedural states; Z88.0 Allergy status to penicillin; Z79.899 Other long term (current) drug therapy; V89.2XXA Person injured in unspecified motor-vehicle accident, traffic, initial encounter; Y93.89 Activity, other specified; Y92.488 Other paved roadways as the place of occurrence of the external cause; Y99.8 Other external cause status
CPT/HCPCS: 99285